=== PATIENT | female | born 1990 | race Hispanic/Latino ===

== ENCOUNTER 2017-02-27 10:14 | Day surgery (SDC) | payer OTHER ==
[2017-02-27 09:45] VITALS: BMI 34.7
[2017-02-27] MEDS ORDERED: Bupivacaine/Epi 0.25%-1:200,000 10 ml PF inj IJ ONE (10:39)
[2017-02-27] MEDS ORDERED: ceFAZolin IV 2 gm in Dextrose 1 GM/50 ML BAG IVPB ONE (10:39)
[2017-02-27] MEDS ORDERED: Lidocaine 1% Inj (20ml) ONE (10:39)
[2017-02-27] MEDS ORDERED: Midazolam 2 MG/2 ML VIAL ONE ×2 (11:31→11:56)
[2017-02-27] MEDS ORDERED: Propofol 10 mg/ml Inj (20 ML) ONE (11:31)
[2017-02-27] MEDS ORDERED: HYDROmorphone 0.5 mg/0.5 ml ISec IVP PRN (12:03)
--- NOTE | 2017-02-27 12:52 | PCM.SURG1 ---
Surgeon's Initial Post Op Note - Surgeon's Notes Surgeon: Yovana [employer] Workers: Huang PGY2 Type of Anesthesia: IV Sedation, Local Pre-Operative Diagnosis: sebaceous cysts Operative Findings: sebaceous cyst x 2 on back Post-Operative Diagnosis: same Operation Performed: excision of sebaceous cysts Specimen/Specimens Removed: sebaceous cyst x 2 Estimated Blood Loss: EBL {In ML}: 10 Blood Products Given: N/A Drains Used: No Drains Post-Op Condition: Good Date of Surgery/Procedure: 02/27/17 Time of Surgery/Procedure: 12:51
[2017-02-27] MEDS ORDERED: Oxycodone/Acetaminophen 5/325 mg Tab PO PRN (12:53)
[2017-02-27 14:11] VITALS: RESP 18; O2SAT 100
[2017-02-27 14:29] VITALS: BP 150/91; PULSE 91; TEMP 98.8
--- NOTE | 2017-02-27 20:33 | OP ---
PROCEDURE DATE: 02/27/2017 PREOPERATIVE DIAGNOSIS: Sebaceous cyst of mid back and lower back. POSTOPERATIVE DIAGNOSIS: Sebaceous cyst of mid back and lower back. PROCEDURES: 1. Excision of sebaceous cyst of mid back approximately 4 x 3 cm in size. 2. Excision of sebaceous cyst of lower back, 3 x 2 cm in size. 3. Layered closure of the mid back wound and lower back wound 4 x 3 cm in size. SURGEON: Ezequiel Yen MD SUPERVISOR IN CHARGE: Raheem Encinas, PGY-2 resident. ANESTHESIA: Local anesthesia plus sedation. ESTIMATED BLOOD LOSS: Around 10 mL. DRAINS: None. PATHOLOGY: 1. Sebaceous cyst of mid back was sent for the pathology. 2. Sebaceous cyst of lower back. 3. The pus was sent for the culture and sensitivity from the mid back. INTRAOPERATIVE FINDINGS: The patient had approximately 4 x 3 cm mid back and 3 x 2 cm lower back sebaceous cyst and the mid back cyst appeared to be infected and was continuing pus. INTRAOPERATIVE STEPS: This 27-year-old female who was diagnosed with sebaceous cyst of the mid back and lower back. The patient was consented for excision of sebaceous cyst and brought to the OR, placed supine on the operating table. After induction of the sedation, the patient was placed in left lateral position. The back was prepped and draped in a sterile fashion and the transverse 4 x 2 cm incision was made on top of the sebaceous cyst and the upper and lower flap was created, lateral and medial dissection was done. Sebaceous cyst appeared to be infected and had a pus discharge. Complete removal of the sebaceous cyst was done. After optimal hemostasis was achieved, the sebaceous cyst was sent to the table for the pathology. Now, the similar incision was made in the lower back. Upper and lower flap was created. Sebaceous cyst was completely excised and sent to the table for the pathology. The wound was irrigated. The larger mid back wound was closed in multiple layers, the fascia and the subcutaneous tissue with a 2-0 Vicryl, subcutaneous with 3-0 Vicryl and skin with 4-0 Monocryl as well as with 3-0 nylon interrupted suture and the lower back wound was closed in 3 layers; the subcutaneous with 2-0 Vicryl, skin with 4-0 Monocryl and 3-0 nylon interrupted suture and a dry sterile dressing was applied. The patient tolerated the procedure well. Count of instruments and gauze was correct. There was no apparent complication. The patient was reversed from sedation, sent to the postanesthesia care in stable condition. Ezequiel Yen MD cc: [id number] TT: 02/27/2017 20:32:18 jn MTDD
== END 2017-02-27 15:00 | disposition home or self-care (01) ==
LOC: C.SDS 10:14
PROVIDERS: ATTEND Surgery Surgical Critical Care
DX: L72.3 Sebaceous cyst (principal); J45.909 Unspecified asthma, uncomplicated; M79.7 Fibromyalgia; Z98.890 Other specified postprocedural states; Z90.89 Acquired absence of other organs; Z79.1 Long term (current) use of non-steroidal anti-inflammatories (NSAID); Z79.899 Other long term (current) drug therapy